=== PATIENT | female | born 1940 | race Two or more races ===

== ENCOUNTER 2022-02-17 12:52 | Emergency (ER) | payer OTHER ==
[~2022-02-17] VITALS: Ht 160 cm; Wt 62.6 kg
[2022-02-17] MEDS ORDERED: CLORAZEPATE D3.75 MG (13:38)
[2022-02-17] MEDS ORDERED: LYRICA20 MG/1 ML (13:39)
== END 2022-02-17 15:54 | disposition home or self-care (01) ==
LOC: ER 12:52
DX: U07.1 COVID-19 (principal); I10 Essential (primary) hypertension

== ENCOUNTER 2022-02-17 15:51 | Outpatient (CLI) | payer OTHER ==
[~2022-02-17 15:51] MED LIST: CLORAZEPATE D3.75 MG; LYRICA20 MG/1 ML
== END 2022-02-17 17:10 | disposition home or self-care (01) ==
LOC: ASH CLINIC 15:51
PROVIDERS: ATTEND General Practice
DX: U07.1 COVID-19 (principal)